=== PATIENT | female | born 1985 | race Two or more races ===

== ENCOUNTER 2022-02-07 15:31 | Day surgery (SDC) | payer OTHER ==
[~2022-02-07] VITALS: Ht 170.2 cm; Wt 83.9 kg
[2022-02-07] MEDS ORDERED: LOSARTAN POTAS100 MG PO (16:01)
== END 2022-02-08 05:00 | disposition home or self-care (01) ==
LOC: ER 15:31 → CIR.AMB 16:04
PROVIDERS: ATTEND Specialist
DX: O03.4 Incomplete spontaneous abortion without complication (principal); Z20.822 Contact with and (suspected) exposure to COVID-19; Z88.0 Allergy status to penicillin; I10 Essential (primary) hypertension; J45.909 Unspecified asthma, uncomplicated